=== PATIENT | female | born 1930 | race Caucasian/White ===

== ENCOUNTER → 2018-11-07 | Outpatient (CLI) | payer MEDICARE, OTHER ==
[~2018-11-07] MED LIST: ATEN50 PO; LISI5 PO
== END | disposition home or self-care (01) ==
LOC: LAB SHORT 11:30 → LAB SRC 11:30
DX: L97.323 Non-pressure chronic ulcer of left ankle with necrosis of muscle (principal); I73.9 Peripheral vascular disease, unspecified
CPT/HCPCS: 87070; 87205

== ENCOUNTER → 2018-11-10 | Outpatient (CLI) | payer MEDICARE, OTHER | END | disposition home or self-care (01) | LOC: LAB 13:06 → LAB HH 13:06 | DX: I83.023 Varicose veins of left lower extremity with ulcer of ankle (principal); L97.323 Non-pressure chronic ulcer of left ankle with necrosis of muscle | CPT/HCPCS: 87070; 87205 ==

== ENCOUNTER 2019-05-07 13:50 | Day surgery (SDC) | payer MEDICARE, OTHER | END 2019-05-07 23:25 | disposition home or self-care (01) | LOC: WOUND 13:50 | DX: I83.028 Varicose veins of left lower extremity with ulcer other part of lower leg (principal); I83.015 Varicose veins of right lower extremity with ulcer other part of foot; L97.829 Non-pressure chronic ulcer of other part of left lower leg with unspecified severity; L97.519 Non-pressure chronic ulcer of other part of right foot with unspecified severity; I10 Essential (primary) hypertension | CPT/HCPCS: G0463 ==

== ENCOUNTER 2019-09-11 00:18 | Day surgery (SDC) | payer MEDICARE, OTHER | END 2019-09-11 23:00 | LOC: WOUND 00:18 | DX: L97.822 Non-pressure chronic ulcer of other part of left lower leg with fat layer exposed (principal); I87.2 Venous insufficiency (chronic) (peripheral); I10 Essential (primary) hypertension; Z79.899 Other long term (current) drug therapy | CPT/HCPCS: G0463 ==

== ENCOUNTER → 2019-09-13 | Day surgery (SDC) | payer MEDICARE, OTHER | LOC: WOUND 00:15 | DX: L97.822 Non-pressure chronic ulcer of other part of left lower leg with fat layer exposed (principal); I87.2 Venous insufficiency (chronic) (peripheral); I10 Essential (primary) hypertension; Z79.899 Other long term (current) drug therapy ==

== ENCOUNTER 2019-09-21 01:14 | Day surgery (SDC) | payer MEDICARE, OTHER | END 2019-09-21 23:51 | disposition home or self-care (01) | LOC: WOUND 01:14 | DX: L97.822 Non-pressure chronic ulcer of other part of left lower leg with fat layer exposed (principal); I87.2 Venous insufficiency (chronic) (peripheral); I10 Essential (primary) hypertension; I83.90 Asymptomatic varicose veins of unspecified lower extremity; M47.817 Spondylosis without myelopathy or radiculopathy, lumbosacral region; Z79.899 Other long term (current) drug therapy ==

== ENCOUNTER 2019-09-28 01:35 | Day surgery (SDC) | payer MEDICARE, OTHER | END 2019-09-28 23:24 | disposition home or self-care (01) | LOC: WOUND 01:35 | DX: L97.822 Non-pressure chronic ulcer of other part of left lower leg with fat layer exposed (principal); I87.2 Venous insufficiency (chronic) (peripheral); I10 Essential (primary) hypertension; Z79.899 Other long term (current) drug therapy ==

== ENCOUNTER 2019-10-05 02:46 | Day surgery (SDC) | payer MEDICARE, OTHER | END 2019-10-05 23:12 | disposition home or self-care (01) | LOC: WOUND 02:46 | DX: L97.822 Non-pressure chronic ulcer of other part of left lower leg with fat layer exposed (principal); I87.2 Venous insufficiency (chronic) (peripheral); I10 Essential (primary) hypertension; M47.816 Spondylosis without myelopathy or radiculopathy, lumbar region ==

== ENCOUNTER → 2020-03-06 | Outpatient (CLI) | payer MEDICARE, OTHER ==
[2020-03-06 13:33] LABS: BASOPHILS ABSOLUTE AUTO 0.04 K/mm3 (0.00-0.23); BASOPHILS PERCENT AUTO 1 % (0-2); EOSINOPHILS ABSOLUTE AUTO 0.07 K/mm3 (0.00-0.68); EOSINOPHILS PERCENT AUTO 1 % (0-6); Hematocrit 41.1 % (33.0-51.0); Hemoglobin 13.3 g/dL (11.5-16.0); IMMATURE GRAN ABSOLUTE AUTO 0.01 K/mm3 (0.00-0.10); IMMATURE GRAN PERCENT AUTO 0 % (0-1); LYMPHOCYTES ABSOLUTE AUTO 1.96 K/mm3 (0.84-5.20); LYMPHOCYTES PERCENT AUTO 29 % (21-46); MONOCYTES ABSOLUTE AUTO 0.55 K/mm3 (0.16-1.47); MONOCYTES PERCENT AUTO 8 % (4-13); Mean Corpuscular HGB 29.8 pg (26.0-34.0); Mean Corpuscular HGB Conc 32.4 g/dL (31.5-36.5); Mean Corpuscular Volume 92 fL (80-100); Mean Platelet Volume 11.1 fL (9.1-12.4); NEUTROPHILS ABSOLUTE AUTO 4.19 K/mm3 (1.96-9.15); NEUTROPHILS PERCENT AUTO 62 % (41-73); Platelet Count 239 K/mm3 (150-400); RDW Coefficient Variation 13.2 % (11.7-14.2); RDW Standard Deviation 44.9 fL (35.1-46.3); Red Blood Cell Count 4.47 M/mm3 (3.80-5.20); White Blood Cell Count 6.82 K/mm3 (4.00-11.30)
[2020-03-06 13:45] LABS: Alanine Aminotransfer (ALT/SGP 26 U/L (12-78); Albumin, Blood 3.4 g/dL (3.4-5.0); Albumin/Globulin Ratio 0.8 (0.8-1.8); Alk Phos 90 U/L (50-136); Anion Gap 4 mmol/L (6-16); Aspartate Aminotrans (AST/SGOT 17 U/L (12-37); Bilirubin, Total 0.4 mg/dL (0.1-1.0); Blood Urea Nitrogen 10 mg/dL (8-24); Bun/Creatinine Ratio 14.7 (12.0-20.0); CO2, Blood 30 mmol/L (21-32); Calcium, Blood 9.5 mg/dL (8.5-10.1); Chloride, Blood 105 mmol/L (98-108); Creatinine, Blood 0.68 mg/dL (0.40-1.00); Globulin, Blood 4.3 g/dL (2.2-4.0); Glomerular Filtration Rate >60 (60-); Glucose, Blood 115 mg/dL (70-99); Potassium, Blood 3.9 mmol/L (3.5-5.5); Sodium, Blood 139 mmol/L (136-145); Total Protein, Blood 7.7 g/dL (6.4-8.2)
== END ==
LOC: LAB SHORT 13:18 → LAB 13:18
PROVIDERS: Nurse Practitioner Family
DX: R10.84 Generalized abdominal pain (principal)
CPT/HCPCS: 80053; 83690; 85025

== ENCOUNTER 2020-03-07 00:08 | Day surgery (SDC) | payer MEDICARE, OTHER | END 2020-03-07 22:52 | disposition home or self-care (01) | LOC: WOUND 00:08 | DX: L97.822 Non-pressure chronic ulcer of other part of left lower leg with fat layer exposed (principal); L97.519 Non-pressure chronic ulcer of other part of right foot with unspecified severity; I87.2 Venous insufficiency (chronic) (peripheral) | CPT/HCPCS: G0463 ==

== ENCOUNTER 2020-03-18 00:16 | Day surgery (SDC) | payer MEDICARE, OTHER | END 2020-03-18 23:13 | disposition home or self-care (01) | LOC: WOUND 00:16 | DX: L97.822 Non-pressure chronic ulcer of other part of left lower leg with fat layer exposed (principal); L97.519 Non-pressure chronic ulcer of other part of right foot with unspecified severity; I87.2 Venous insufficiency (chronic) (peripheral); I10 Essential (primary) hypertension; Z79.899 Other long term (current) drug therapy ==

== ENCOUNTER 2020-03-25 01:52 | Day surgery (SDC) | payer MEDICARE, OTHER | END 2020-03-25 22:40 | disposition home or self-care (01) | LOC: WOUND 01:52 | DX: L97.822 Non-pressure chronic ulcer of other part of left lower leg with fat layer exposed (principal); L97.519 Non-pressure chronic ulcer of other part of right foot with unspecified severity; I87.2 Venous insufficiency (chronic) (peripheral); I10 Essential (primary) hypertension; Z79.899 Other long term (current) drug therapy ==

== ENCOUNTER 2020-04-01 00:36 | Day surgery (SDC) | payer MEDICARE, OTHER | END 2020-04-01 22:40 | disposition home or self-care (01) | LOC: WOUND 00:36 | DX: L97.822 Non-pressure chronic ulcer of other part of left lower leg with fat layer exposed (principal); L97.519 Non-pressure chronic ulcer of other part of right foot with unspecified severity; I87.2 Venous insufficiency (chronic) (peripheral); Z79.899 Other long term (current) drug therapy ==

== ENCOUNTER 2020-04-14 01:11 | Day surgery (SDC) | payer MEDICARE, OTHER | END 2020-04-14 23:21 | disposition home or self-care (01) | LOC: WOUND 01:11 | DX: L97.822 Non-pressure chronic ulcer of other part of left lower leg with fat layer exposed (principal); L97.519 Non-pressure chronic ulcer of other part of right foot with unspecified severity; I87.2 Venous insufficiency (chronic) (peripheral); I10 Essential (primary) hypertension; Z79.899 Other long term (current) drug therapy ==

== ENCOUNTER 2020-04-22 00:13 | Day surgery (SDC) | payer MEDICARE, OTHER | END 2020-04-22 22:47 | disposition home or self-care (01) | LOC: WOUND 00:13 | DX: L97.822 Non-pressure chronic ulcer of other part of left lower leg with fat layer exposed (principal); L97.519 Non-pressure chronic ulcer of other part of right foot with unspecified severity; I87.2 Venous insufficiency (chronic) (peripheral) ==

== ENCOUNTER 2020-04-29 05:24 | Day surgery (SDC) | payer MEDICARE, OTHER | END 2020-04-29 23:04 | disposition home or self-care (01) | LOC: WOUND 05:24 | DX: L97.822 Non-pressure chronic ulcer of other part of left lower leg with fat layer exposed (principal); I73.9 Peripheral vascular disease, unspecified; I87.2 Venous insufficiency (chronic) (peripheral); I73.00 Raynaud's syndrome without gangrene; M06.9 Rheumatoid arthritis, unspecified; H26.9 Unspecified cataract; I49.9 Cardiac arrhythmia, unspecified; I10 Essential (primary) hypertension; Z79.899 Other long term (current) drug therapy ==

== ENCOUNTER 2020-05-07 00:58 | Day surgery (SDC) | payer MEDICARE, OTHER | END 2020-05-07 12:00 | disposition home or self-care (01) | LOC: WOUND 00:58 | DX: L97.821 Non-pressure chronic ulcer of other part of left lower leg limited to breakdown of skin (principal); I73.9 Peripheral vascular disease, unspecified; I87.2 Venous insufficiency (chronic) (peripheral); I10 Essential (primary) hypertension; H26.9 Unspecified cataract; I49.9 Cardiac arrhythmia, unspecified; M06.9 Rheumatoid arthritis, unspecified; I73.00 Raynaud's syndrome without gangrene; Z79.899 Other long term (current) drug therapy | CPT/HCPCS: G0463 ==

== ENCOUNTER 2020-11-03 01:43 | Day surgery (SDC) | payer OTHER | END 2020-11-03 22:56 | disposition home or self-care (01) | LOC: WOUND 01:43 | DX: L97.822 Non-pressure chronic ulcer of other part of left lower leg with fat layer exposed (principal); L97.519 Non-pressure chronic ulcer of other part of right foot with unspecified severity; I87.2 Venous insufficiency (chronic) (peripheral); I10 Essential (primary) hypertension; I48.91 Unspecified atrial fibrillation; I73.00 Raynaud's syndrome without gangrene; M06.9 Rheumatoid arthritis, unspecified | CPT/HCPCS: A9270; G0463 ==

== ENCOUNTER 2020-11-06 00:15 | Day surgery (SDC) | payer OTHER | END 2020-11-07 23:12 | disposition home or self-care (01) | LOC: WOUND 00:15 | DX: L97.822 Non-pressure chronic ulcer of other part of left lower leg with fat layer exposed (principal); L97.519 Non-pressure chronic ulcer of other part of right foot with unspecified severity; I87.2 Venous insufficiency (chronic) (peripheral) ==

== ENCOUNTER 2020-11-11 00:18 | Day surgery (SDC) | payer OTHER | END 2020-11-11 23:03 | disposition home or self-care (01) | LOC: WOUND 00:18 | DX: L97.822 Non-pressure chronic ulcer of other part of left lower leg with fat layer exposed (principal); L97.519 Non-pressure chronic ulcer of other part of right foot with unspecified severity; I87.2 Venous insufficiency (chronic) (peripheral); I10 Essential (primary) hypertension; I48.91 Unspecified atrial fibrillation; I73.00 Raynaud's syndrome without gangrene; M06.9 Rheumatoid arthritis, unspecified | CPT/HCPCS: 87070; 87075; 87205; A9270 ==

== ENCOUNTER 2020-11-17 00:23 | Day surgery (SDC) | payer OTHER | END 2020-11-17 23:13 | disposition home or self-care (01) | LOC: WOUND 00:23 | DX: L97.822 Non-pressure chronic ulcer of other part of left lower leg with fat layer exposed (principal); L97.519 Non-pressure chronic ulcer of other part of right foot with unspecified severity; I87.2 Venous insufficiency (chronic) (peripheral) | CPT/HCPCS: A9270; G0463 ==

== ENCOUNTER 2020-12-01 00:09 | Day surgery (SDC) | payer OTHER | END 2020-12-01 23:11 | disposition home or self-care (01) | LOC: WOUND 00:09 | DX: L97.822 Non-pressure chronic ulcer of other part of left lower leg with fat layer exposed (principal); L97.519 Non-pressure chronic ulcer of other part of right foot with unspecified severity; I87.2 Venous insufficiency (chronic) (peripheral); I10 Essential (primary) hypertension | CPT/HCPCS: A9270 ==

== ENCOUNTER 2020-12-09 03:31 | Day surgery (SDC) | payer OTHER | END 2020-12-09 23:08 | disposition home or self-care (01) | LOC: WOUND 03:31 | DX: L97.822 Non-pressure chronic ulcer of other part of left lower leg with fat layer exposed (principal); L97.519 Non-pressure chronic ulcer of other part of right foot with unspecified severity; I87.2 Venous insufficiency (chronic) (peripheral); I10 Essential (primary) hypertension | CPT/HCPCS: A9270; G0463 ==

== ENCOUNTER 2020-12-16 03:04 | Day surgery (SDC) | payer OTHER | END 2020-12-16 23:17 | disposition home or self-care (01) | LOC: WOUND 03:04 | DX: L97.822 Non-pressure chronic ulcer of other part of left lower leg with fat layer exposed (principal); I87.2 Venous insufficiency (chronic) (peripheral); I10 Essential (primary) hypertension | CPT/HCPCS: A9270; G0463 ==

== ENCOUNTER 2020-12-30 02:17 | Day surgery (SDC) | payer OTHER | END 2020-12-30 23:00 | disposition home or self-care (01) | LOC: WOUND 02:17 | DX: L97.822 Non-pressure chronic ulcer of other part of left lower leg with fat layer exposed (principal); L97.519 Non-pressure chronic ulcer of other part of right foot with unspecified severity; I87.2 Venous insufficiency (chronic) (peripheral); I10 Essential (primary) hypertension | CPT/HCPCS: G0463 ==

== ENCOUNTER 2021-01-12 00:53 | Day surgery (SDC) | payer OTHER | END 2021-01-13 02:58 | disposition home or self-care (01) | LOC: WOUND 00:53 | DX: L97.822 Non-pressure chronic ulcer of other part of left lower leg with fat layer exposed (principal); I87.2 Venous insufficiency (chronic) (peripheral); I10 Essential (primary) hypertension | CPT/HCPCS: A9270; G0463 ==

== ENCOUNTER 2021-09-11 03:13 | Day surgery (SDC) | payer OTHER | END 2021-09-11 23:16 | disposition home or self-care (01) | LOC: WOUND 03:13 | DX: L97.822 Non-pressure chronic ulcer of other part of left lower leg with fat layer exposed (principal); I87.2 Venous insufficiency (chronic) (peripheral); S91.009A Unspecified open wound, unspecified ankle, initial encounter; X58.XXXA Exposure to other specified factors, initial encounter; I10 Essential (primary) hypertension; M06.9 Rheumatoid arthritis, unspecified; I48.91 Unspecified atrial fibrillation; I73.9 Peripheral vascular disease, unspecified | CPT/HCPCS: G0463 ==

== ENCOUNTER 2021-09-22 00:35 | Day surgery (SDC) | payer OTHER | END 2021-09-22 23:02 | disposition home or self-care (01) | LOC: WOUND 00:35 | DX: L97.822 Non-pressure chronic ulcer of other part of left lower leg with fat layer exposed (principal); L97.329 Non-pressure chronic ulcer of left ankle with unspecified severity; I87.2 Venous insufficiency (chronic) (peripheral); I73.9 Peripheral vascular disease, unspecified | CPT/HCPCS: A9270; G0463 ==

== ENCOUNTER 2021-09-29 06:01 | Day surgery (SDC) | payer OTHER | END 2021-09-29 23:59 | disposition home or self-care (01) | LOC: WOUND 06:01 | DX: L97.822 Non-pressure chronic ulcer of other part of left lower leg with fat layer exposed (principal); L97.329 Non-pressure chronic ulcer of left ankle with unspecified severity; S91.002D Unspecified open wound, left ankle, subsequent encounter; I87.2 Venous insufficiency (chronic) (peripheral); I73.9 Peripheral vascular disease, unspecified | CPT/HCPCS: A9270; G0463 ==

== ENCOUNTER 2021-10-13 02:19 | Day surgery (SDC) | payer OTHER | END 2021-10-13 23:42 | disposition home or self-care (01) | LOC: WOUND 02:19 | DX: L97.822 Non-pressure chronic ulcer of other part of left lower leg with fat layer exposed (principal); L97.328 Non-pressure chronic ulcer of left ankle with other specified severity; I87.2 Venous insufficiency (chronic) (peripheral); I73.9 Peripheral vascular disease, unspecified | CPT/HCPCS: A9270; G0463 ==

== ENCOUNTER 2021-10-27 08:00 | Day surgery (SDC) | payer OTHER | END 2021-10-27 23:59 | disposition home or self-care (01) | LOC: WOUND 08:00 | DX: L97.822 Non-pressure chronic ulcer of other part of left lower leg with fat layer exposed (principal); L97.329 Non-pressure chronic ulcer of left ankle with unspecified severity; S91.002A Unspecified open wound, left ankle, initial encounter; I87.2 Venous insufficiency (chronic) (peripheral); I73.9 Peripheral vascular disease, unspecified ==

== ENCOUNTER 2021-11-03 02:17 | Day surgery (SDC) | payer OTHER | END 2021-11-03 23:01 | disposition home or self-care (01) | LOC: WOUND 02:17 | DX: L97.822 Non-pressure chronic ulcer of other part of left lower leg with fat layer exposed (principal); L97.329 Non-pressure chronic ulcer of left ankle with unspecified severity | CPT/HCPCS: A9270 ==

== ENCOUNTER 2021-11-10 02:12 | Day surgery (SDC) | payer OTHER | END 2021-11-10 23:32 | disposition home or self-care (01) | LOC: WOUND 02:12 | DX: L97.822 Non-pressure chronic ulcer of other part of left lower leg with fat layer exposed (principal); L97.328 Non-pressure chronic ulcer of left ankle with other specified severity; I87.2 Venous insufficiency (chronic) (peripheral); I73.9 Peripheral vascular disease, unspecified | CPT/HCPCS: A9270 ==

== ENCOUNTER 2021-12-01 03:03 | Day surgery (SDC) | payer OTHER | END 2021-12-01 23:36 | disposition home or self-care (01) | LOC: WOUND 03:03 | DX: L97.822 Non-pressure chronic ulcer of other part of left lower leg with fat layer exposed (principal); S91.002A Unspecified open wound, left ankle, initial encounter; I87.2 Venous insufficiency (chronic) (peripheral) | CPT/HCPCS: A9270 ==

== ENCOUNTER 2021-12-08 02:00 | Day surgery (SDC) | payer OTHER | END 2021-12-08 23:21 | disposition home or self-care (01) | LOC: WOUND 02:00 | DX: L97.822 Non-pressure chronic ulcer of other part of left lower leg with fat layer exposed (principal); S91.002A Unspecified open wound, left ankle, initial encounter; I87.2 Venous insufficiency (chronic) (peripheral); I73.9 Peripheral vascular disease, unspecified | CPT/HCPCS: A9270 ==

== ENCOUNTER 2021-12-22 02:07 | Day surgery (SDC) | payer OTHER | END 2021-12-22 23:18 | disposition home or self-care (01) | LOC: WOUND | DX: L97.822 Non-pressure chronic ulcer of other part of left lower leg with fat layer exposed (principal); I87.2 Venous insufficiency (chronic) (peripheral) | CPT/HCPCS: A9270 ==

== ENCOUNTER 2021-12-29 01:09 | Day surgery (SDC) | payer OTHER | END 2021-12-29 23:26 | disposition home or self-care (01) | LOC: WOUND 01:09 | DX: L97.822 Non-pressure chronic ulcer of other part of left lower leg with fat layer exposed (principal); I87.2 Venous insufficiency (chronic) (peripheral); I73.9 Peripheral vascular disease, unspecified; S91.002A Unspecified open wound, left ankle, initial encounter; I82.511 Chronic embolism and thrombosis of right femoral vein; Z79.01 Long term (current) use of anticoagulants ==

== ENCOUNTER 2022-01-05 01:59 | Day surgery (SDC) | payer OTHER | END 2022-01-05 22:58 | disposition home or self-care (01) | LOC: WOUND 01:59 | DX: L97.822 Non-pressure chronic ulcer of other part of left lower leg with fat layer exposed (principal); S91.002D Unspecified open wound, left ankle, subsequent encounter; X58.XXXD Exposure to other specified factors, subsequent encounter; I87.2 Venous insufficiency (chronic) (peripheral); I73.9 Peripheral vascular disease, unspecified | CPT/HCPCS: A9270 ==

== ENCOUNTER 2022-01-13 00:42 | Day surgery (SDC) | payer OTHER | END 2022-01-13 22:51 | disposition home or self-care (01) | LOC: WOUND 00:42 | DX: L97.822 Non-pressure chronic ulcer of other part of left lower leg with fat layer exposed (principal); S91.002D Unspecified open wound, left ankle, subsequent encounter; X58.XXXD Exposure to other specified factors, subsequent encounter; I87.2 Venous insufficiency (chronic) (peripheral); I73.9 Peripheral vascular disease, unspecified; I10 Essential (primary) hypertension | CPT/HCPCS: G0463 ==